=== PATIENT | female | born 1940 | race Caucasian/White ===

== ENCOUNTER → 2021-04-11 14:08 | Outpatient (BNVA) | payer MEDICARE, OTHER, SELFPAY | PROVIDERS: PCP Physician Assistant Medical; Visit Provider Orthopaedic Surgery | DX: M16.11 Unilateral primary osteoarthritis, right hip (principal) | CPT/HCPCS: 99212 ==

== ENCOUNTER → 2021-05-08 12:49 | Outpatient (BNVA) | payer MEDICARE, OTHER, SELFPAY | PROVIDERS: Visit Provider Orthopaedic Surgery | DX: Z01.812 Encounter for preprocedural laboratory examination (principal); Z01.810 Encounter for preprocedural cardiovascular examination; M17.11 Unilateral primary osteoarthritis, right knee ==

== ENCOUNTER → 2021-06-07 11:07 | Outpatient (BNVA) | payer MEDICARE, OTHER, SELFPAY | PROVIDERS: PCP Physician Assistant Medical; Visit Provider Physician Assistant | DX: M17.11 Unilateral primary osteoarthritis, right knee (principal) | CPT/HCPCS: 99212 ==

== ENCOUNTER 2021-06-12 10:01 | Day surgery (SDC) | payer MEDICARE, OTHER, SELFPAY ==
--- NOTE | 2021-05-29 10:44 | HO.ANESPROP2 ---
Documented by User: Julita Doll NP 06/09/21 09:03 HPI - Anesthesia Eval Consult details Narrative: 81yo F for Right Knee Replacement Total Methotrexate for Rheumatoid Arthritis - has instructions to hold Pt with herniated cervical discs s/p repair with mildly limited ROM. Also reports lumbar disc herniation. Discussed spinal with GA back up if spinal not possible. PCP cleared s/p L TKA 2000 [facility] Active Problems Active Problems: All Active Problems (Updated 05/26/21 @ 10:12 by Nimco Kumar) Primary osteoarthritis of right hip (Acute) Osteoarthritis of right knee (Acute) Past Medical History Medical History Anxiety Arthritis Atrial dilatation, left COVID-19 vaccine series completed Degenerative disc disease Depression Elevated cholesterol GERD (gastroesophageal reflux disease) HTN (hypertension) HX: breast cancer Hypothyroid Mitral regurgitation Normal cardiac stress test Osteopenia Family History Family history of problems with anesthesia: No Surgical History Surgical History History of carpal tunnel release of both wrists History of lumpectomy of right breast History of total left knee replacement Hx of cervical discectomy Hx of lithotripsy Hx of nasal septoplasty History of Problems with Anesthesia: No Social History Social History Household Members: None Housing: Apartment Are you a primary client care representative to a significant other at home: No Do you presently have visiting nurse or other home services: No Patient Tobacco Use Status: Former Tobacco user Quit Date: age 34 Tobacco use type: Cigarette Years Smoked: 19 Smoked in Last 30 Days: No Use of substances other than those prescribed or required for medical reasons: No Have you been hit, kicked, punched, or otherwise hurt by someone within the past year? 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 Narrative Narrative: No recent illness No CP/SOB with >4mets (walks at the mall) Meds Allergies Allergy/AdvReac Type Severity Reaction Status Date / Time amoxicillin [Augmentin] AdvReac Mild Stomach Verified 06/07/21 11:14 Upset clavulanic acid [Augmentin] AdvReac Mild Stomach Verified 06/07/21 11:14 Upset Home Medications Medication Instructions Recorded Confirmed Last Taken Type clonazepam 0.5 mg tablet 1 tab PO DAILY PRN 05/26/21 05/26/21 Unknown History escitalopram oxalate 20 mg tablet 1 tab PO DAILY 05/26/21 05/26/21 Unknown History folic acid 1 mg tablet 1 tab PO DAILY 05/26/21 05/26/21 Unknown History gabapentin 100 mg capsule 2 cap PO BEDTIME 05/26/21 05/29/21 Unknown History levothyroxine 75 mcg tablet 1 tab PO QAM 05/26/21 05/26/21 Unknown History meclizine 25 mg tablet 1 tab PO BID PRN 05/26/21 05/26/21 Unknown History methotrexate sodium 2.5 mg tablet 8 tab PO QWEEK 05/26/21 05/26/21 Unknown History omeprazole 40 mg capsule,delayed 1 cap PO DAILY 05/26/21 05/26/21 Unknown History release trazodone 100 mg tablet 1 tab PO BEDTIME 05/26/21 05/26/21 Unknown History cholecalciferol (vitamin D3) 50 100 mcg PO DAILY 05/29/21 05/29/21 Unknown History mcg (2,000 unit) capsule (Vitamin D3) lisinopril 20 mg tablet 1 tab PO DAILY 05/29/21 05/29/21 Unknown History magnesium 500 mg tablet 15 mg PO DAILY 05/29/21 05/29/21 Unknown History vit C-vit B-qrgyhm-[id number]-omega 1 cap PO DAILY 05/29/21 05/29/21 Unknown History 3 100 mg-15 unit-2 mg-100 mg capsule tramadol 50 mg tablet 50 mg PO Q6H PRN 06/07/21 Unknown History Exam Exam Date and Time: May 29, 2021 1044 Height,Weight and Vital Signs: Pulse Resp BP Pulse Ox 87 20 103/55 L 96 05/29/21 12:19 05/29/21 12:19 05/29/21 12:19 05/29/21 12:19 Pertinent Lab Results Pertinent Lab Results: Outside facility labs from 05/2021 reviewed BMP, TSH, PT/INR, CBC all WNL except: Hgb low at 10.5 A1C = 6.1 Lab Results 05/29/21 05/29/21 Range/Units 12:30 13:10 Nasal Screen MRSA (PCR) NEGATIVE (Negative) Nasal S. aureus Screen NEGATIVE (Negative) Nasal MRSA/S.aureus Interp SEE NOTE Blood Type B Negative Antibody Screen NEGATIVE Narrative Narrative: EKG NSR @ 80 Poor R wave progression ECHO 2017 LV cavity size and wall thickness are normal. LV systolic function is normal EF 65% LV diastolic couldn't be adequately assessed LA mildly dilated Moderate mitral regurg Moderate elevated pulmonary pressure Compared to 2008. degree of MR may have increased slightly and now LAE. Also, pulmonary pressures are higher Airway Mallampati Class: I TM Dist: >3cm Neck ROM: Limited (Herniated cervical disc s/p surgical discectomy x 2) Denture: Upper and Lower Heart: RRR Lungs: CTAB Assessment and Plan Assessment Anesthesia Assessment: Anesthesia Plan Discussed (Spinal (reports lumbar disc herniation, unsure of level) vs GA) and PAT Visit Final Anesthetic Review Family History of Problems with Anesthesia: No History of Problems with Anesthesia: No Documented by User: Zeenat Chilel MD 06/12/21 11:33 [facility] Past Medical History Medical History Anxiety Arthritis Atrial dilatation, left COVID-19 vaccine series completed Degenerative disc disease Depression Elevated cholesterol GERD (gastroesophageal reflux disease) HTN (hypertension) HX: breast cancer Hypothyroid Mitral regurgitation Normal cardiac stress test Osteopenia Surgical History Surgical History History of carpal tunnel release of both wrists History of lumpectomy of right breast History of total left knee replacement Hx of cervical discectomy Hx of lithotripsy Hx of nasal septoplasty Social History Social History Household Members: None Housing: Apartment Are you a primary client care representative to a significant other at home: No Do you presently have visiting nurse or other home services: No Patient Tobacco Use Status: Former Tobacco user Quit Date: age 34 Tobacco use type: Cigarette Years Smoked: 19 Smoked in Last 30 Days: No Use of substances other than those prescribed or required for medical reasons: No Have you been hit, kicked, punched, or otherwise hurt by someone within the past year? 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 Meds Allergies Allergy/AdvReac Type Severity Reaction Status Date / Time amoxicillin [Augmentin] AdvReac Mild Stomach Verified 06/07/21 11:14 Upset clavulanic acid [Augmentin] AdvReac Mild Stomach Verified 06/07/21 11:14 Upset Home Medications Medication Instructions Recorded Confirmed Last Taken Type clonazepam 0.5 mg tablet 1 tab PO DAILY PRN 05/26/21 05/26/21 Unknown History escitalopram oxalate 20 mg tablet 1 tab PO DAILY 05/26/21 05/26/21 Unknown History folic acid 1 mg tablet 1 tab PO DAILY 05/26/21 05/26/21 Unknown History gabapentin 100 mg capsule 2 cap PO BEDTIME 05/26/21 05/29/21 Unknown History levothyroxine 75 mcg tablet 1 tab PO QAM 05/26/21 05/26/21 Unknown History meclizine 25 mg tablet 1 tab PO BID PRN 05/26/21 05/26/21 Unknown History methotrexate sodium 2.5 mg tablet 8 tab PO QWEEK 05/26/21 05/26/21 Unknown History omeprazole 40 mg capsule,delayed 1 cap PO DAILY 05/26/21 05/26/21 Unknown History release trazodone 100 mg tablet 1 tab PO BEDTIME 05/26/21 05/26/21 Unknown History cholecalciferol (vitamin D3) 50 100 mcg PO DAILY 05/29/21 05/29/21 Unknown History mcg (2,000 unit) capsule (Vitamin D3) lisinopril 20 mg tablet 1 tab PO DAILY 05/29/21 05/29/21 Unknown History magnesium 500 mg tablet 15 mg PO DAILY 05/29/21 05/29/21 Unknown History vit C-vit C-wjgqrw-uyqdtpfm-omega 1 cap PO DAILY 05/29/21 05/29/21 Unknown History 3 100 mg-15 unit-2 mg-100 mg capsule tramadol 50 mg tablet 50 mg PO Q6H PRN 06/07/21 Unknown History Assessment and Plan Final Anesthetic Review NPO: Yes ASA Class: III Final Preanesthetic Review: No Changes in Pt Med Stat, Meds/Allgs Chart Reviewed, Consent Obtained/Reviewed and Anes Risks/Benef Reviewed Patient Risk: Intermediate Procedure Risk: Intermediate Assessment/Block/Sedation in SS: Assess/Block/Sedation-SS Anesthetic Plan Anesthetic Plan: GA and Regional Block Disposition: Standard PACU
[2021-05-29 12:03] VITALS: BMI 29.1
[2021-05-29 12:19] VITALS: BP 103/55; PULSE 87; RESP 20; O2SAT 96
[2021-05-29 14:39] LABS: MRSA Nasal PCR NEGATIVE (Negative); SA Nasal PCR NEGATIVE (Negative)
[2021-06-12] VITALS (15 sets, daily range): BP systolic 88–138; BP diastolic 52–79; PULSE 75–110; RESP 14–18; TEMP 36.2–37; O2SAT 91–99
--- NOTE | ~2021-06-12 | XR_ITS ---
EXAMINATION: XR CHEST CLINICAL INFORMATION: Hypoxia. COMPARISON: None TECHNIQUE: Frontal view of the chest was obtained. FINDINGS: The lungs are well-expanded and clear of acute process. Heart size and pulmonary vascularity is normal. No gross bony abnormality seen. XR/XR chest 1V IMPRESSION: Unremarkable chest exam.
--- NOTE | ~2021-06-12 | XR_ITS ---
EXAMINATION: XR KNEE, RIGHT CLINICAL INFORMATION: Postoperative evaluation. COMPARISON: Right knee radiographs dated 10/28/2019. TECHNIQUE: Four views of the right knee. FINDINGS: The patient is status post right knee arthroplasty showing good anatomic alignment with no evidence for hardware malfunction. There is no acute fracture. The subcutaneous and intra-articular air is seen. There is mild prepatellar soft tissue swelling. Multiple skin mak are noted anteriorly. XR/XR knee RT 2V IMPRESSION: Postsurgical changes without hardware abnormality.
--- NOTE | ~2021-06-12 | CT_ITS ---
EXAMINATION: CT ANGIOGRAM OF THE CHEST WITH AND WITHOUT CONTRAST (CT PULMONARY ANGIOGRAM FOR PE) CLINICAL INFORMATION: Reason for Exam hypoxia COMPARISON: Chest x-ray June 13, 2021 TECHNIQUE: Prior to contrast administration, noncontrast localization images were obtained. Subsequently, multidetector volumetric imaging was performed from the thoracic inlet to below the diaphragms following the administration of 65 mL Omnipaque 350 intravenous contrast. No contrast reaction reported Sagittal, coronal, and MIP oblique sagittal reformatted images were obtained on the CT workstation, uploaded to PACS, and reviewed. This CT examination was performed using dose optimization techniques as appropriate, variously including the following: *Automated exposure control *Adjustment of mA and/or kV according to patient size (this includes techniques or standardized protocols for targeted exams where dose is matched to indication/reason for exam; i.e. extremities or head) *Use of iterative reconstruction technique Total exam dose-length product 116 mGy-cm FINDINGS: QUALITY OF STUDY/CONTRAST BOLUS: Satisfactory. PULMONARY ARTERIES: No central or segmental pulmonary emboli. THORACIC AORTA: No aneurysm or dissection. LUNG: No focal consolidation, nodules or masses. Thin-walled lung cyst in the right lower lobe measuring 1.8 cm. PLEURA: No pleural effusion or pneumothorax. MEDIASTINUM: Normal heart size. No pericardial effusion. No hilar or mediastinal lymphadenopathy. No evidence of septal bowing or right heart strain. CHEST WALL/AXILLA: No axillary or internal mammary lymphadenopathy. OSSEOUS STRUCTURES: No acute or suspicious osseous abnormality. UPPER ABDOMEN: Unremarkable. No reflux of contrast into the hepatic veins to suggest elevated right heart pressures. CT/CT angio chest PE protocol IMPRESSION: 1. No evidence of pulmonary embolism. 2. No acute airspace disease. No acute change of the chest. VTE: negative
--- NOTE | 2021-06-12 07:42 | MHC.SHP ---
Pre-Procedural Eval Section A Date of Service: 06/12/21 The patient is an INPATIENT: No Changes since office visit: No Cold of Flu in the past 2 weeks, No New Medical Problems, No Changes in Medication and No Patient answered all questions The History & Physical has been completed within 30 days and I have reviewed it.: Yes Section B Chief Complaint: osteoarthritis Allergies: Allergies Allergy/AdvReac Type Severity Reaction Status Date / Time amoxicillin [Augmentin] AdvReac Mild Stomach Verified 06/07/21 11:14 Upset clavulanic acid [Augmentin] AdvReac Mild Stomach Verified 06/07/21 11:14 Upset Plan I have reviewed the history and physical and performed a pertinent physical examination on my patient. No changes have occurred unless specified.
[2021-06-12 10:46] LABS: COVID-19 Test Negative (Negative)
[2021-06-12] MEDS: Lactated Ringers 1,000 ML 80 ML IVCONT (11:02)
--- NOTE | 2021-06-12 11:25 | PC.NURSE ---
Patient o2 Stat 82-88% on RA post anesthesia nerve block, patient awake and talking, asymptomatic otherwise. Probe changed to different finger & sticker probe placed without resolution. Patient placed on 2L via NC and now stating 96%. Anesthesia Dr Eric notified.
--- NOTE | 2021-06-12 13:30 | P.OP_ITS ---
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 Has osteoarthritis. Has failed non operative management. Therefore after explaining the risks benefits and alternatives and answering all the questions it was mutually agreed upon care following procedure OPERATIVE DETAILS With of regional and spinal anesthetic the patient was placed supine on the operating table. Pneumatic tourniquet cuff was placed around the upper thigh and inflated to 300 mm of mercury at the beginning of the case. The leg was then prepped and draped in standard fashion with the leg free. Surgical time-out was then performed. The patient was identified. Procedure confirmed. Site confirmed. Medical and allergy history reviewed. Preoperative antibiotics were given. Standard DVT prophylaxis in place. Transexamic acid was given as well. All other items were discussed and agreed upon. Standard small midline incision was made. Was taken down through the subc utaneous tissues. Hemostasis achieved along the way using electrocautery. This brought us to the extensor mechanism where a medial parapatellar arthrotomy in a subvastus technique was performed. The patella was retracted into the lateral gutter. The soft tissues were elevated from the anterior aspect of the femur. At the level of the tibia the soft tissue elevated medially excising a portion of the meniscus as well as protecting the medial-sided soft tissues. Similarly on the lateral side a portion of the fat pad, portion of the meniscus were excised. The lateral-sided soft tissues were elevated protecting them as well. The ACL was resected. We turned our attention then to the femur. Standard Intermedullary hole was established. The cutting guide was set for 6 degrees of valgus with a standard cut. It was held in place with pins and the surface resected flat. The sizing guide was then used. The femur was sized to a E GSF The 3 degree external rotation pins were set. The all in 1 cutting guide for this size was placed the pins and centered over the distal cut. Following this the anterior and anterior chamfer cuts, the posterior and posterior chamfer cuts, the patellar recess cuts, as well as the lug holes were made. The guide was removed. The bony fragments removed and we turned our attention to the tibia. The remainder of the medial and lateral menisci were excised. The extramedullary guide was then used in standard fashion referencing the tibial tubercle, the subcutaneous border of the tibia, and the middle of the ankle. The slope was then set. The cut was referenced from the more worn size for a minimal cut. The surface was then resected. The bony segment removed. The tibia was then trialed to a size 5 x 10 mm. It was aligned as the extramed ullary guide had been. A 10 mm trial insert was put into place. The femoral trial was also applied with good fit. The alignment of the leg was excellent. The knee was then placed through a range of motion which demonstrated full extension full flexion stable medially and laterally at 0, 30, 60, and 90 degrees of flexion. Patella tracked centrally. Turning our attention to the patella. The soft tissues were elevated circumferentially. The surface was resected flat. It sized to 32 mm. the lug hole was drilled in standard fashion. The trial component was put into place with excellent fit. It tracked nicely through flexion and extension. Therefore the trial sizes were appropriate and therefore the permanent components were selected and brought up onto the table. The trial components were then all removed after the peg holes for the tibia were made. The tourniquet was then let down with total tourniquet time of 38 mm. The area of the lateral geniculate artery was identified and cauterized. Any excessive bleeding points were also cauterized. The knee was then thoroughly irrigated. The permanent components were brought up onto the table. The tibia followed by the femur followed by the patella were all Press-Fit into place. The knee was placed through range of motion. It had full flexion and extension. It was stable medial and laterally in all positions. Patella tracked centrally. And therefore we proceeded to closure. Wound was thoroughly irrigated. The extensor mechanism was closed with #2 Quill suture. The skin was approximated with 2-0 Polysorb suture. The skin was closed with mak. Sterile dressing was then applied. The patient was then transferred supine to the room bed and taken to the recovery room in good condition. Intraoperatively a 2nd unit a transxemic acid was given at the time of closure. There was approximately 50 cc blood loss. No intraop transfusions or complications. .
[2021-06-12] MEDS: oxyCODONE HCl Immed Release 5 MG TABLET PO (14:40)
[2021-06-12] MEDS: fentaNYL citrate/PF 100 MCG/2 ML VIAL 25 MCG IVPUSH ×2 (14:40→14:45)
[2021-06-12] MEDS: Lactated Ringers 1,000 ML 100 ML IVCONT (15:54)
[2021-06-12] MEDS: Lactated Ringers 1,000 ML 999 ML IV (17:23)
[2021-06-12] MEDS: Acetaminophen 325 MG TABLET 650 MG PO ×2 (17:25→21:49)
[2021-06-12] MEDS: Ketorolac Tromethamine 15 MG/ML VIAL IVPUSH (21:46)
[2021-06-12] MEDS: oxyCODONE HCl Immed Release 5 MG TABLET 10 MG PO (21:48)
[2021-06-13] VITALS (8 sets, daily range): BP systolic 102–129; BP diastolic 48–62; PULSE 75–94; RESP 16–18; TEMP 36.2–37; O2SAT 93–100
--- NOTE | 2021-06-13 | ECG_ITS ---
Test Reason : RAPID RESPONSE Blood Pressure : / mmHG Vent. Rate : 101 BPM Atrial Rate : 101 BPM P-R Int : 170 ms QRS Dur : 090 ms QT Int : 344 ms P-R-T Axes : 051 016 152 degrees QTc Int : 446 ms Sinus tachycardia Low voltage QRS Nonspecific ST and T wave abnormality Abnormal ECG No previous ECGs available Referred By: Esequiel Solares Electronically Signed By:ARIANA CHOW
[2021-06-13] MEDS: Ketorolac Tromethamine 15 MG/ML VIAL IVPUSH ×4 (03:06→22:14)
[2021-06-13] MEDS: Acetaminophen 325 MG TABLET 650 MG PO ×4 (03:08→22:15)
[2021-06-13] MEDS: oxyCODONE HCl Immed Release 5 MG TABLET 10 MG PO ×3 (03:08→15:40)
[2021-06-13] MEDS: Lactated Ringers 1,000 ML 100 ML IVCONT ×2 (03:10→17:10)
[2021-06-13] MEDS: 0.9 % Sodium Chloride Flush 3 ML SYRINGE IVFLUSH (09:39)
--- NOTE | 2021-06-13 09:39 | PM.IMCN ---
History of Present Illness Data of Consult Service Date: 06/13/21 Requesting physician: Thu Vides Primary Care Provider: Unknown Physician HPI Reason for consult: Medical issues This is a 81 yo F with a PMH as outlined below who presents is admitted under the orthopedic after elective R TKA. Medical services are consulted for management of her medical issues. Patient is seen and examined on Med/Surg. She reports knee pain but otherwise denies cp, sob, cough, abd. pain, n/v/d. Review of Systems Review of Systems: General - no fevers or chills Cardiovascular - no chest pain Respiratory - no shortness of breath or cough Abdominal- no abdominal pain, nausea, vomiting, diarrhea PMFSH Medical History Anxiety Arthritis Atrial dilatation, left COVID-19 vaccine series completed Degenerative disc disease Depression Elevated cholesterol GERD (gastroesophageal reflux disease) HTN (hypertension) HX: breast cancer Hypothyroid Mitral regurgitation Normal cardiac stress test Osteopenia Surgical History History of carpal tunnel release of both wrists History of lumpectomy of right breast History of total left knee replacement Hx of cervical discectomy Hx of lithotripsy Hx of nasal septoplasty Social History Household Members: None Housing: House Are you a primary md do resident urgent care to a significant other at home: No Do you presently have visiting nurse or other home services: No Patient Tobacco Use Status: Former Tobacco user Quit Date: age 34 Tobacco use type: Cigarette Years Smoked: 19 Smoked in Last 30 Days: No Use of substances other than those prescribed or required for medical reasons: No Currently Displaying Signs/Symptoms of Drug Intoxication Withdrawal: No Have you been hit, kicked, punched, or otherwise hurt by someone within the past year? If so, by whom?: No Do you feel safe in your current relationship?: No Current Relationship Is there a partner from a previous relationship who is making you feel unsafe now?: No Are you made to feel afraid or neglected: No Are you DNR?: Yes Advance Directives: Yes Advance Directives Information Provided: Yes (states is son Harrison-will bring copy DOS of HCP & DNR) Advance Directives on File: No Advance Directives Date on File: 06/12/21 Do you have thoughts of harming others: None Do you have a plan to hurt others: No Plan Recently lost weight without trying: No Eating poorly because of decreased appetite: No Nutrition Risks: No Nutritional Risk Patient : No : No Poor oral hygiene: No Current occupational status: 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 Meds Allergies Allergy/AdvReac Type Severity Reaction Status Date / Time amoxicillin [Augmentin] AdvReac Mild Stomach Verified 06/07/21 11:14 Upset clavulanic acid [Augmentin] AdvReac Mild Stomach Verified 06/07/21 11:14 Upset Active Medications: Current Medications Generic Name Dose Route Start Last Admin Trade Name Freq PRN Reason Stop Dose Admin Acetaminophen 650 mg 06/12/21 15:44 06/13/21 03:08 Acetaminophen 325 Mg Tablet PO 650 mg Q6H BERTRAND Administration Aspirin 325 mg 06/13/21 22:00 Aspirin 325 Mg Tablet PO BID BERTRAND Lactated Ringer's 1,000 mls @ 80 mls/hr 06/12/21 10:15 06/13/21 03:10 Lr IVCONT 100 mls/hr .[id number] BERTRAND Administration Ketorolac Tromethamine 15 mg 06/12/21 15:44 06/13/21 03:06 Ketorolac Tromethamine 15 Mg/Ml Vial IVPUSH 15 mg Q6H BERTRAND Administration Morphine Sulfate 2 mg 06/12/21 15:44 Morphine Sulfate 2 Mg/Ml Cartridge IVPUSH Q2H PRN Pain, Severe (Pain Scale 7-10) Protocol Naloxone HCl 0.2 mg 06/12/21 15:44 Naloxone Hcl 0.4 Mg/Ml Vial IVPUSH Q2M PRN Excessive sedation or RR < 8 Ondansetron HCl 4 mg 06/12/21 15:44 Ondansetron Hcl 4 Mg/2 Ml Vial IVPUSH Q8H PRN Nausea and Vomiting Oxycodone HCl 10 mg 06/12/21 15:44 06/13/21 03:08 Oxycodone Hcl Immed Release 5 Mg Tablet PO 10 mg Q6H BERTRAND Administration Sodium Chloride 3 ml 06/12/21 16:00 06/12/21 23:37 0.9 % Sodium Chloride Flush 3 Ml Syringe IVFLUSH Not Given QSHIFT [facility] Home Medications Medication Instructions Recorded Confirmed Last Taken Type clonazepam 0.5 mg tablet 1 tab PO DAILY PRN 05/26/21 05/26/21 Unknown History escitalopram oxalate 20 mg tablet 1 tab PO DAILY 05/26/21 05/26/21 Unknown History folic acid 1 mg tablet 1 tab PO DAILY 05/26/21 05/26/21 Unknown History gabapentin 100 mg capsule 2 cap PO BEDTIME 05/26/21 05/29/21 Unknown History levothyroxine 75 mcg tablet 1 tab PO QAM 05/26/21 05/26/21 Unknown History meclizine 25 mg tablet 1 tab PO BID PRN 05/26/21 05/26/21 Unknown History methotrexate sodium 2.5 mg tablet 8 tab PO QWEEK 05/26/21 05/26/21 Unknown History omeprazole 40 mg capsule,delayed 1 cap PO DAILY 05/26/21 05/26/21 Unknown History release trazodone 100 mg tablet 1 tab PO BEDTIME 05/26/21 05/26/21 Unknown History cholecalciferol (vitamin D3) 50 100 mcg PO DAILY 05/29/21 05/29/21 Unknown History mcg (2,000 unit) capsule (Vitamin D3) lisinopril 20 mg tablet 1 tab PO DAILY 05/29/21 05/29/21 Unknown History magnesium 500 mg tablet 15 mg PO DAILY 05/29/21 05/29/21 Unknown History vit C-vit G-[id number]-moyteteq-omega 1 cap PO DAILY 05/29/21 05/29/21 Unknown History 3 100 mg-15 unit-2 mg-100 mg capsule tramadol 50 mg tablet 50 mg PO Q6H PRN 06/07/21 Unknown History Physical Exam Vital Signs and Narrative: Vital Signs: Last Vital Signs Temp 97.1 F 06/13/21 07:26 Pulse 75 06/13/21 07:26 Resp 16 06/13/21 07:26 BP 102/55 L 06/13/21 07:26 Pulse Ox 96 06/13/21 07:26 Body Mass Index 29.1 Const: Other: General - no acute distress, appears comfortable Cardiovascular - regular rate and rhythm, S1-S2 Lungs - normal respiratory effort, clear to auscultation bilaterally, no wheezing Abdomen - soft, nontender, no rebound or guarding Extremities - no edema bilaterally Neuro - awake and alert, no focal deficits Results Labs Labs: Laboratory Results - last 24 hr 06/12/21 10:16 COVID-19 ([facility]) Negative COVID-19 Clin Com See Note Assessment and Plan (1) Osteoarthritis of right knee: Status: Acute This is a 81 yo F admitted under the orthopedic services after elective R TKA. Medical services consulted for management of her chronic medical issues. 1. HTN bp soft, hold antihypertensives. If SBP remains above 120 during hospitalization, can resume her antihypertensives upon d/c. 2. Hypothyroidism synthroid 3. GERD PPI 4. Mood continue baseline meds 5. R TKA mgmt per ortho, including post op pain and dvt pptx Patient is medically stable at this time with no active medical issues. Please reconsult or [facility]connect if any issues arise. Signing off at this time.
--- NOTE | 2021-06-13 09:46 | PM.PNORT ---
Subjective Subjective Date of Service: 06/13/21 Interval history: POD 1 s/p RT TKA No overnight events She is sitting up in the chair, knee bent, tolerating pain well. No concerns. Denies sob or cp Physical Exam Vital Signs: Vital Signs: Last Vital Signs Temp 97.1 F 06/13/21 07:26 Pulse 75 06/13/21 07:26 Resp 16 06/13/21 07:26 BP 102/55 L 06/13/21 07:26 Pulse Ox 96 06/13/21 07:26 Body Mass Index 29.1 Const: General: cooperative, healthy appearing and no acute distress Resp: Effort & Inspection: normal respiratory effort and able to speak in complete sentences Cardio: Rate: regular rate Peripheral pulses: Peripheral pulses 2+ throughout GI: Palpation (GI): Soft to palpation Skin: General skin exam: no rashes or lesions noted Extrem: Other: incision clean dry and intact. Jerrica intact. No erythema or joint effusion. Calf supple nontender. Neurovascularly intact. Procedures Date of Service Date of Service: 06/13/21 Progress Note: A&P Assessment and plan (1) Status post total right knee replacement: Status: Acute Assessment and Plan: Continue pain mgmnt Begin Aspirin for dvt ppx begin PT for RT TKA Dispo planning-Pending PT eval, pain mgmnt Fall Risk Details Current Medications: Current Medications Generic Name Dose Route Start Last Admin Trade Name Freq PRN Reason Stop Dose Admin Acetaminophen 650 mg 06/12/21 15:44 06/13/21 09:40 Acetaminophen 325 Mg Tablet PO 650 mg Q6H BERTRAND Administration Aspirin 325 mg 06/13/21 22:00 Aspirin 325 Mg Tablet PO BID BERTRAND Clonazepam 0.5 mg 06/13/21 09:40 Clonazepam 0.5 Mg Tablet PO DAILY PRN Anxiety Escitalopram Oxalate 20 mg 06/13/21 09:40 Escitalopram Oxalate 20 Mg Tablet PO DAILY BERTRAND Folic Acid 1 mg 06/13/21 09:40 Folic Acid 1 Mg Tablet PO DAILY BERTRAND Gabapentin 200 mg 06/13/21 21:00 Gabapentin 100 Mg Capsule PO BEDTIME BERTRAND Lactated Ringer's 1,000 mls @ 80 mls/hr 06/12/21 10:15 06/13/21 03:10 Lr IVCONT 100 mls/hr .[id number] BERTRAND Administration Ketorolac Tromethamine 15 mg 06/12/21 15:44 06/13/21 09:39 Ketorolac Tromethamine 15 Mg/Ml Vial IVPUSH 15 mg Q6H BERTRAND Administration Levothyroxine Sodium 75 mcg 06/14/21 06:30 Levothyroxine Sodium 75 Mcg Tablet PO QAM [facility] Morphine Sulfate 2 mg 06/12/21 15:44 Morphine Sulfate 2 Mg/Ml Cartridge IVPUSH Q2H PRN Pain, Severe (Pain Scale 7-10) Protocol Naloxone HCl 0.2 mg 06/12/21 15:44 Naloxone Hcl 0.4 Mg/Ml Vial IVPUSH Q2M PRN Excessive sedation or RR < 8 Omeprazole 40 mg 06/13/21 09:40 Omeprazole 40 Mg Capsule.Dr PO DAILY [facility] Ondansetron HCl 4 mg 06/12/21 15:44 Ondansetron Hcl 4 Mg/2 Ml Vial IVPUSH Q8H PRN Nausea and Vomiting Oxycodone HCl 10 mg 06/12/21 15:44 06/13/21 09:40 Oxycodone Hcl Immed Release 5 Mg Tablet PO 10 mg Q6H BERTRAND Administration Sodium Chloride 3 ml 06/12/21 16:00 06/13/21 09:39 0.9 % Sodium Chloride Flush 3 Ml Syringe IVFLUSH 3 ml QSHIFT BERTRAND Administration Trazodone HCl 100 mg 06/13/21 21:00 Trazodone Hcl 100 Mg Tablet PO BEDTIME [facility] Vitamin D 100 mcg 06/13/21 09:40 Cholecalciferol (Vitamin D3) 25 Mcg Tablet PO DAILY [facility] Time Spent With Patient Time: Total time spent is greater than 50% in coordination of care (as documented) at patient's floor/unit and/or counseling patient: Time with patient: 15 - 24 minutes Quality Stroke Does the patient have a stroke diagnosis?: No VTE Prior VTE?: No VTE Risk Level:: Surgical - high VTE Device Contraindication: N/A - Device Ordered VTE Drug Contraindication: N/A - Med Ordered
[2021-06-13] MEDS: Escitalopram Oxalate 20 MG TABLET PO (10:12)
[2021-06-13] MEDS: Cholecalciferol (Vitamin D3) 25 MCG TABLET 100 MCG PO (10:12)
[2021-06-13] MEDS: Folic Acid 1 MG TABLET PO (10:12)
--- NOTE | 2021-06-13 10:14 | HO.POSTANES ---
Post Anesthesia Evaluation Post Anesthesia Evaluation Vital Signs: Vital Signs Temp Pulse Resp BP Pulse Ox 06/13/21 09:52 75 102/55 L 96 06/13/21 07:26 97.1 F 75 16 102/55 L 96 06/13/21 03:05 97.8 F 75 16 125/62 94 06/12/21 23:26 97.2 F 81 16 106/56 L 91 L Anesthesia: Nerve Block and General Endotracheal-GETA Mental Status: Awake Pain Control: Satisfactory Nausea/Vomiting: None Hydration: Adequate Anesthesia-Related Issues: No Anes. Related Issues
[2021-06-13] MEDS: Morphine Sulfate 2 MG/ML CARTRIDGE IVPUSH (12:42)
--- NOTE | 2021-06-13 13:49 | MHC.CM.PN ---
IMM 06/13/21, EMR REVIEWED, PT ADMITTED S/P TOTAL LEFT KNEE ARTHROPLASTY, PT REPORTS SHE IS INDEPENDENT W/CARE AT BASELINE, HAS CANE AND WALKER W/NO WHEELS AT HOME & NO HOME SERVICES, PT REQUESTING [facility] FOR STR REPORTING SHE CANNOT MANAGE AT HOME W/ALL OF HER OTHER AIN ISSUES INCLUDING BACK AND NECK PAIN, PT VERIFIES PCP IS CHRIS DEUTSCH. PT VERIFIES HCP SONS LISTED IN CHART AND COPY HAS BEEN REQUESTED, AND AWARE WE WILL NEED FOR STR. D/C PLAN: STR W/ACTION FOR BLS TRANSPORT.
[2021-06-13] MEDS: Furosemide 100 MG/10 ML VIAL 60 MG IVPUSH (19:11)
[2021-06-13 19:57] LABS: Hematocrit 23.1 % (37-47); Mean Corpuscular HGB Conc 30.3 g/dl (31.0-35.0); Mean Corpuscular Hemoglobin 23.5 pg (27.0-33.0); Mean Corpuscular Volume 77.5 fL (80-98); Mean Platelet Volume 10.4 fL (9.4-12.3); Platelet Count 174 X10*3/uL (160-400); Red Blood Count 2.98 X10*6/uL (4.20-5.50); Red Cell Distribution Width 16.3 % (11.0-16.0); White Blood Count 5.2 X10*3/uL (4.8-10.8)
[2021-06-13 20:25] LABS: Anion Gap 12 (12-20); Blood Urea Nitrogen 20 mg/dL (9-16); Calcium 8.1 mg/dL (8.4-10.2); Carbon Dioxide 25 mmol/L (22-29); Chloride 106 mmol/L (96-108); Creatinine Clr Calc Pharmacy 35.8; Estimated Glomerular Filt Rate 46; Glucose Random 125 mg/dL (60-115); Potassium 4.2 mmol/L (3.3-5.1); Sodium 139 mmol/L (135-145)
[2021-06-13 20:31] LABS: B Type Natriuretic Peptide 198 pg/mL (<100); Troponin-I High Sensitivity < 3.5 ng/L (<3.5-17.0)
--- NOTE | 2021-06-13 21:28 | P.DS_ITS ---
DS: Providers Provider Date of Service: 06/15/21 Primary care physician: Unknown Physician Consults: 06/12/21 15:44 Consult to Hospitalist Routine Consulting Provider: Hospitalist Reason For Exam: medical issues DS: Diagnosis Discharge Diagnosis (1) Status post total right knee replacement: Status: Acute DS: Medications Discharge Medications Home Medications: Home Medications Medication Instructions Recorded Confirmed clonazepam 0.5 mg tablet 1 tab PO DAILY PRN 05/26/21 05/26/21 escitalopram oxalate 20 mg tablet 1 tab PO DAILY 05/26/21 05/26/21 folic acid 1 mg tablet 1 tab PO DAILY 05/26/21 05/26/21 gabapentin 100 mg capsule 2 cap PO BEDTIME 05/26/21 05/29/21 levothyroxine 75 mcg tablet 1 tab PO QAM 05/26/21 05/26/21 meclizine 25 mg tablet 1 tab PO BID PRN 05/26/21 05/26/21 methotrexate sodium 2.5 mg tablet 8 tab PO QWEEK 05/26/21 05/26/21 omeprazole 40 mg capsule,delayed 1 cap PO DAILY 05/26/21 05/26/21 release trazodone 100 mg tablet 1 tab PO BEDTIME 05/26/21 05/26/21 cholecalciferol (vitamin D3) 50 100 mcg PO DAILY 05/29/21 05/29/21 mcg (2,000 unit) capsule (Vitamin D3) lisinopril 20 mg tablet 1 tab PO DAILY 05/29/21 05/29/21 magnesium 500 mg tablet 15 mg PO DAILY 05/29/21 05/29/21 vit C-vit F-tzxcbp-dgdipxto-omega 1 cap PO DAILY 05/29/21 05/29/21 3 100 mg-15 unit-2 mg-100 mg capsule Previous Rx's Medication Instructions Recorded acetaminophen 325 mg tablet 650 mg PO Q6H 30 Days #240 tab 06/13/21 aspirin 325 mg tablet 325 mg PO BID 14 Days #28 tab 06/13/21 oxycodone 10 mg tablet 10 mg PO Q6H 7 Days #28 tab 06/13/21 DS: Summary Hospital Course Hospital Course: This is a 81-year-old female presented the office with right knee pain. She was found have osteoarthritis of the right knee and continued to have pain and difficulty with daily activities. Therefore she consented to move forward with right total knee arthroplasty. The patient underwent a successful RIGHT TOTAL KNEE arthroplasty, was transferred to PACU and then to the floor to recover. During their stay, their vitals were stable, afebrile at 99.1. Labs were unremarkable, H/H 8.8/28.8 . Postop day 0 she had a syncopal episode where she became cyanotic. Stat H&H was performed and her values were 6.3/21.1. She was transfused with 2 units of packed red blood cells. Patient also had a chest x-ray, CT angiogram which were negative. Echo cardiogram was significant for pulmonary hypertension. Postop day 1 she was started on aspirin for DVT ppx, they also received services twice a day. Prior to discharge, their dressing was change, incision clean dry and intact, new Aquacel dressing applied and the plan was [facility] be [facility]. Time Spent with Patient Time attestation: Total time spent providing and/or coordinating discharge services: Discharge coordination time: Less than 30 minutes Quality: Stroke Does the patient have a stroke diagnosis?: No Physical Exam Vital Signs: Vital Signs: Last Vital Signs Temp 98.6 F 06/13/21 20:00 Pulse 94 06/13/21 20:00 Resp 18 06/13/21 20:00 BP 129/59 L 06/13/21 15:27 Pulse Ox 100 06/13/21 20:00 Oxygen Flow Rate 1 06/13/21 14:27 Body Mass Index 29.1 DS: Data Data Completed and Pending Pending studies at discharge: Pending at discharge 06/12/21 13:09 Surgical [PTH] Routine Labs on day of discharge: Laboratory Results - last 24 hr 06/13/21 06/13/21 06/13/21 19:37 19:37 19:38 WBC 5.2 RBC 2.98 L Hgb 7.0 L* Hct 23.1 L MCV 77.5 L MCH 23.5 L MCHC 30.3 L RDW 16.3 H Plt Count 174 MPV 10.4 Absolute Nucleated RBC 0.000 Nucleated RBC % (auto) 0.0 Smear Path Review Cancelled Sodium 139 Potassium 4.2 Chloride 106 Carbon Dioxide 25 Anion Gap 12 BUN 20 H Creatinine 1.14 Estim Creat Clear Calc 35.8 Estimated GFR 46 Random Glucose 125 H Calcium 8.1 L Troponin I High Sens < 3.5 B-Natriuretic Peptide 198 H Discharge Plan Discharge Patient Disposition: er SNF Referrals: [facility]ino Erickson [Outside] - 1 Day (short term rehab) Tonia Bishop PA-C [[employer]] - 2 Weeks (06/28/21 1:00 [facility] Tonia Bishop PA-C) Discharge Medications: New aspirin 325 mg Tablet 325 mg PO BID 14 Days Qty: 28 RF: 0 acetaminophen 325 mg Tablet 650 mg PO Q6H 30 Days Qty: 240 RF: 0 oxycodone 10 mg tablet 10 mg PO Q6H PRN (Reason: pain (scale score 4-6)) 7 Days Qty: 28 RF: 0 Continued clonazepam 0.5 mg tablet 1 tab PO DAILY PRN (Reason: Anxiety) RF: 0 omeprazole 40 mg capsule,delayed release(DR/EC) 1 cap PO DAILY RF: 0 levothyroxine 75 mcg tablet 1 tab PO QAM RF: 0 trazodone 100 mg tablet 1 tab PO BEDTIME RF: 0 meclizine 25 mg tablet 1 tab PO BID PRN (Reason: Vertigo) RF: 0 folic acid 1 mg tablet 1 tab PO DAILY RF: 0 gabapentin 100 mg capsule 2 cap PO BEDTIME RF: 0 escitalopram oxalate 20 mg tablet 1 tab PO DAILY RF: 0 lisinopril 20 mg tablet 1 tab PO DAILY RF: 0 vit C-vit [id number]-vzb-om-3 [id number] dp-pjsk-sv-mg Capsule 1 cap PO DAILY RF: 0 magnesium 500 mg Tablet 15 mg PO DAILY RF: 0 cholecalciferol (vitamin D3) [Vitamin D3] 50 mcg (2,000 unit) Capsule 100 mcg PO DAILY RF: 0 Held methotrexate sodium 2.5 mg tablet 8 tab PO QWEEK RF: 0 Hold Instructions: hold x 6 weeks Discontinued tramadol 50 mg tablet 50 mg PO Q6H PRNRF: 0 Discharge Orders: Discharge Order (Routine); Ordered 06/15/21 Ordered By: Tonia Bishop Activity Restrictions/Additional Instructions: * Physical Therapy for Total knee arthroplasty: gait training, ROM 0-12, quad strength * Limit stair climbing * No showering, no tub bath-keep dressing clean, dry and intact * No driving x6 weeks * Continue Aspirin twice a day x 2 weeks * Follow up with [facility] in 2 weeks
[2021-06-13 21:39] LABS: Ferritin 15 ng/mL (10-250)
[2021-06-13 21:58] LABS: Folate 10.2 ng/mL (> or = 4.0); Vitamin B12 539 pg/mL (200-900)
[2021-06-13] MEDS: Aspirin 325 MG TABLET PO (22:14)
[2021-06-13] MEDS: Gabapentin 100 MG CAPSULE 200 MG PO (22:16)
[2021-06-13] MEDS: traZODone HCL 100 MG TABLET PO (22:17)
[2021-06-14] VITALS (17 sets, daily range): BP systolic 86–146; BP diastolic 49–73; PULSE 70–90; RESP 16–18; TEMP 36.1–37; O2SAT 75–98
[2021-06-14] MEDS: oxyCODONE HCl Immed Release 5 MG TABLET 10 MG PO ×5 (00:51→20:49)
[2021-06-14] MEDS: Acetaminophen 325 MG TABLET 650 MG PO ×4 (04:19→20:50)
[2021-06-14] MEDS: Ketorolac Tromethamine 15 MG/ML VIAL IVPUSH ×4 (04:21→22:51)
[2021-06-14 06:23] LABS: MANUAL DIFF FLAG NO
[2021-06-14] MEDS: Levothyroxine Sodium 75 MCG TABLET PO (06:29)
[2021-06-14] MEDS: Omeprazole 40 MG CAPSULE.DR PO (06:29)
[2021-06-14 06:42] LABS: Basophils Percent Auto 0.4 % (0-2); Eosinophils Absolute Auto 0.1 X10*3/uL (0.0-0.4); Eosinophils Percent Auto 2.2 % (0-4); Hematocrit 21.1 % (37-47); Imm Gran Abs Auto 0.01 X10*3/uL (0.00-0.03); Imm Gran Pct Auto 0.2 % (0.0-0.4); Lymphocytes Absolute Auto 1.3 X10*3/uL (1.2-4.9); Lymphocytes Percent Auto 29.3 % (20-40); Mean Corpuscular HGB Conc 29.9 g/dl (31.0-35.0); Mean Corpuscular Hemoglobin 23.4 pg (27.0-33.0); Mean Corpuscular Volume 78.4 fL (80-98); Mean Platelet Volume 10.6 fL (9.4-12.3); Monocytes Absolute Auto 0.6 X10*3/uL (0.1-1.2); Monocytes Percent Auto 13.1 % (2-11); Neutrophils Absolute Auto 2.5 X10*3/uL (2.0-8.3); Neutrophils Percent Auto 54.8 % (45-73); Platelet Count 158 X10*3/uL (160-400); Red Blood Count 2.69 X10*6/uL (4.20-5.50); Red Cell Distribution Width 16.3 % (11.0-16.0); White Blood Count 4.6 X10*3/uL (4.8-10.8)
[2021-06-14 07:00] LABS: Hemoglobin 6.3 g/dl (12.0-16.0)
[2021-06-14 07:14] LABS: Anion Gap 8 (12-20); Blood Urea Nitrogen 22 mg/dL (9-16); Carbon Dioxide 30 mmol/L (22-29); Chloride 107 mmol/L (96-108); Creatinine Clr Calc Pharmacy 37.1; Estimated Glomerular Filt Rate 48; Glucose Random 101 mg/dL (60-115); Potassium 4.3 mmol/L (3.3-5.1); Sodium 141 mmol/L (135-145)
[2021-06-14 08:00] LABS: COVID-19 Test Negative (Negative)
[2021-06-14] MEDS: Cholecalciferol (Vitamin D3) 25 MCG TABLET 100 MCG PO (08:04)
[2021-06-14] MEDS: Aspirin 325 MG TABLET PO ×2 (08:04→20:48)
[2021-06-14] MEDS: Folic Acid 1 MG TABLET PO (08:04)
[2021-06-14] MEDS: Escitalopram Oxalate 20 MG TABLET PO (08:04)
--- NOTE | 2021-06-14 09:44 | P.PNOP_ITS ---
Subjective Subjective Date of Service: 06/14/21 Interval history: POD2 RTKA with Dr. Vides. Patient is resting comfortably in bed. Overnight the patient has a syncopal episode and became cyanotic. A chest x-ray was obtained and was negative for any acute pathology. The patient is feeling beeter this morning. Pain is well managed. Physical Exam Vital Signs: Vital Signs: Last Vital Signs Temp 97.2 F 06/14/21 07:53 Pulse 77 06/14/21 09:21 Resp 18 06/14/21 07:53 BP 104/73 06/14/21 09:21 Pulse Ox 96 06/14/21 09:21 Oxygen Flow Rate 1 06/13/21 14:27 Body Mass Index 29.1 Const: General: cooperative, healthy appearing and no acute distress Resp: Effort & Inspection: normal respiratory effort and able to speak in complete sentences Cardio: Rate: regular rate Peripheral pulses: Peripheral pulses 2+ throughout GI: Palpation (GI): Soft to palpation Skin: Lesions: no lesions Rashes: no rashes Extrem: Other: Right knee aquacel dressing is clean, dry, and intact. No redness, ecchymosis, or drainage. NVI. Procedures Date of Service Date of Service: 06/14/21 Progress Note: A&P Assessment and plan (1) Status post total right knee replacement: Status: Acute Assessment and Plan: Continue pain mgmnt Continue ASA for dvt ppx Continue PT for RTKA H/H 6.3/.1 transfuse 1unit PRBCs Dispo planning- Medical clearance, continue PT and monitor H/H Fall Risk Details Current Medications: Current Medications Generic Name Dose Route Start Last Admin Trade Name Rosario PRN Reason Stop Dose Admin Acetaminophen 650 mg 06/12/21 15:44 06/14/21 08:04 Acetaminophen 325 Mg Tablet PO 650 mg Q6H BERTRAND Administration Aspirin 325 mg 06/13/21 22:00 06/14/21 08:04 Aspirin 325 Mg Tablet PO 325 mg BID BERTRAND Administration Clonazepam 0.5 mg 06/13/21 09:40 Clonazepam 0.5 Mg Tablet PO DAILY PRN Anxiety Escitalopram Oxalate 20 mg 06/13/21 09:40 06/14/21 08:04 Escitalopram Oxalate 20 Mg Tablet PO 20 mg DAILY BERTRAND Administration Folic Acid 1 mg 06/13/21 09:40 06/14/21 08:04 Folic Acid 1 Mg Tablet PO 1 mg DAILY BERTRAND Administration Gabapentin 200 mg 06/13/21 21:00 06/13/21 22:16 Gabapentin 100 Mg Capsule PO 200 mg BEDTIME BERTRAND Administration Ketorolac Tromethamine 15 mg 06/12/21 15:44 06/14/21 08:04 Ketorolac Tromethamine 15 Mg/Ml Vial IVPUSH 15 mg Q6H BERTRAND Administration Levothyroxine Sodium 75 mcg 06/14/21 06:00 06/14/21 06:29 Levothyroxine Sodium 75 Mcg Tablet PO 75 mcg DAILY@0600 BERTRAND Administration Morphine Sulfate 2 mg 06/12/21 15:44 06/13/21 12:42 Morphine Sulfate 2 Mg/Ml Cartridge IVPUSH 2 mg Q2H PRN Administration Pain, Severe (Pain Scale 7-10) Protocol Naloxone HCl 0.2 mg 06/12/21 15:44 Naloxone Hcl 0.4 Mg/Ml Vial IVPUSH Q2M PRN Excessive sedation or RR < 8 Omeprazole 40 mg 06/14/21 06:30 06/14/21 06:29 Omeprazole 40 Mg Capsule.Dr PO 40 mg DAILY@0630 [facility] Administration Ondansetron HCl 4 mg 06/12/21 15:44 Ondansetron Hcl 4 Mg/2 Ml Vial IVPUSH Q8H PRN Nausea and Vomiting Oxycodone HCl 10 mg 06/12/21 15:44 06/14/21 08:04 Oxycodone Hcl Immed Release 5 Mg Tablet PO 10 mg Q6H BERTRAND Administration Sodium Chloride 3 ml 06/12/21 16:00 06/14/21 08:05 0.9 % Sodium Chloride Flush 3 Ml Syringe IVFLUSH Not Given QSHIFT [facility] Trazodone HCl 100 mg 06/13/21 21:00 06/13/21 22:17 Trazodone Hcl 100 Mg Tablet PO 100 mg BEDTIME BERTRAND Administration Vitamin D 100 mcg 06/13/21 09:40 06/14/21 08:04 Cholecalciferol (Vitamin D3) 25 Mcg Tablet PO 100 mcg DAILY BERTRAND Administration Time Spent With Patient Time: Total time spent is greater than 50% in coordination of care (as documented) at patient's floor/unit and/or counseling patient: Time with patient: less than 15 minutes Quality Stroke Does the patient have a stroke diagnosis?: No VTE Prior VTE?: No VTE Risk Level:: Surgical - high VTE Device Contraindication: N/A - Device Ordered VTE Drug Contraindication: N/A - Med Ordered
--- NOTE | 2021-06-14 10:14 | P.PNIM_ITS ---
Subjective Subjective Date of Service: 06/14/21 Interval History: feels better today denying sob or chest pain 06/13 at about 7pm had rapid response for hypoxia/ams, was put on o2 and given l asix, after about 30 minutes felt back to normal, but still required 2-3L o2. Cardiovascular Cardiovascular: Reports no additional cardiovascular complaints Respiratory Respiratory: Reports no additional respiratory complaints Physical Exam Vital Signs: Vital Signs: Last Vital Signs Temp 97.4 F 06/14/21 10:12 Pulse 73 06/14/21 10:12 Resp 16 06/14/21 10:12 BP 88/51 L 06/14/21 10:12 Pulse Ox 94 06/14/21 10:05 Oxygen Flow Rate 1 06/13/21 14:27 Body Mass Index 29.1 General: AO X 3, no acute distress Resp: diminihsed CVS: S1,S2,RRR GI: soft, non tender, non distended Neuro: motor grossly intact Psych: appropriate affect Objective Data Current Medications Generic Name Dose Route Start Last Admin Trade Name Mikeq PRN Reason Stop Dose Admin Acetaminophen 650 mg 06/12/21 15:44 06/14/21 08:04 Acetaminophen 325 Mg Tablet PO 650 mg Q6H BERTRAND Administration Aspirin 325 mg 06/13/21 22:00 06/14/21 08:04 Aspirin 325 Mg Tablet PO 325 mg BID BERTRAND Administration Clonazepam 0.5 mg 06/13/21 09:40 Clonazepam 0.5 Mg Tablet PO DAILY PRN Anxiety Escitalopram Oxalate 20 mg 06/13/21 09:40 06/14/21 08:04 Escitalopram Oxalate 20 Mg Tablet PO 20 mg DAILY BERTRAND Administration Folic Acid 1 mg 06/13/21 09:40 06/14/21 08:04 Folic Acid 1 Mg Tablet PO 1 mg DAILY EBRTRAND Administration Gabapentin 200 mg 06/13/21 21:00 06/13/21 22:16 Gabapentin 100 Mg Capsule PO 200 mg BEDTIME BERTRAND Administration Ketorolac Tromethamine 15 mg 06/12/21 15:44 06/14/21 08:04 Ketorolac Tromethamine 15 Mg/Ml Vial IVPUSH 15 mg Q6H BERTRAND Administration Levothyroxine Sodium 75 mcg 06/14/21 06:00 06/14/21 06:29 Levothyroxine Sodium 75 Mcg Tablet PO 75 mcg DAILY@0600 BERTRAND Administration Morphine Sulfate 2 mg 06/12/21 15:44 06/13/21 12:42 Morphine Sulfate 2 Mg/Ml Cartridge IVPUSH 2 mg Q2H PRN Administration Pain, Severe (Pain Scale 7-10) Protocol Naloxone HCl 0.2 mg 06/12/21 15:44 Naloxone Hcl 0.4 Mg/Ml Vial IVPUSH Q2M PRN Excessive sedation or RR < 8 Omeprazole 40 mg 06/14/21 06:30 06/14/21 06:29 Omeprazole 40 Mg Capsule. PO 40 mg DAILY@0630 BERTRAND Administration Ondansetron HCl 4 mg 06/12/21 15:44 Ondansetron Hcl 4 Mg/2 Ml Vial IVPUSH Q8H PRN Nausea and Vomiting Oxycodone HCl 10 mg 06/12/21 15:44 06/14/21 08:04 Oxycodone Hcl Immed Release 5 Mg Tablet PO 10 mg Q6H BERTRAND Administration Sodium Chloride 3 ml 06/12/21 16:00 06/14/21 08:05 0.9 % Sodium Chloride Flush 3 Ml Syringe IVFLUSH Not Given QSHIFT BERTRAND Trazodone HCl 100 mg 06/13/21 21:00 06/13/21 22:17 Trazodone Hcl 100 Mg Tablet PO 100 mg BEDTIME BERTRAND Administration Vitamin D 100 mcg 06/13/21 09:40 06/14/21 08:04 Cholecalciferol (Vitamin D3) 25 Mcg Tablet PO 100 mcg DAILY BERTRAND Administration Labs CBC & Chem 7: 06/14/21 05:58 06/14/21 05:58 Labs: Laboratory Results - last 24 hr 06/13/21 06/13/21 06/13/21 19:37 19:37 19:38 MCV 77.5 L MCH 23.5 L MCHC 30.3 L RDW 16.3 H Plt Count 174 MPV 10.4 Immature Gran % (Auto) Neut % (Auto) Lymph % (Auto) [place] % (Auto) Eos % (Auto) Baso % (Auto) Lymph # (Auto) [place] # (Auto) Eos # (Auto) Baso # (Auto) Abs Immat Gran (auto) Absolute Neuts (auto) Absolute Nucleated RBC 0.000 Nucleated RBC % (auto) 0.0 Smear Path Review Cancelled Anion Gap 12 Estim Creat Clear Calc 35.8 Estimated GFR 46 Random Glucose 125 H Calcium 8.1 L Ferritin 15 Troponin I High Sens < 3.5 B-Natriuretic Peptide 198 H Vitamin B12 Folate COVID-19 ([facility]) COVID-19 CENX Com Blood Type Antibody Screen Crossmatch 06/13/21 06/14/21 06/14/21 19:38 05:58 05:58 MCV 78.4 L MCH 23.4 L MCHC 29.9 L RDW 16.3 H Plt Count 158 L MPV 10.6 Immature Gran % (Auto) 0.2 Neut % (Auto) 54.8 Lymph % (Auto) 29.3 [place] % (Auto) 13.1 H Eos % (Auto) 2.2 Baso % (Auto) 0.4 Lymph # (Auto) 1.3 [place] # (Auto) 0.6 Eos # (Auto) 0.1 Baso # (Auto) 0.0 Abs Immat Gran (auto) 0.01 Absolute Neuts (auto) 2.5 Absolute Nucleated RBC 0.000 Nucleated RBC % (auto) 0.0 Smear Path Review Anion Gap 8 L Estim Creat Clear Calc 37.1 Estimated GFR 48 Random Glucose 101 Calcium 8.0 L Ferritin Troponin I High Sens B-Natriuretic Peptide Vitamin B12 539 Folate 10.2 COVID-19 ([facility]) COVID-19 CENX Com Blood Type Antibody Screen Crossmatch 06/14/21 06/14/21 07:18 07:47 MCV MCH MCHC RDW Plt Count MPV Immature Gran % (Auto) Neut % (Auto) Lymph % (Auto) [place] % (Auto) Eos % (Auto) Baso % (Auto) Lymph # (Auto) [place] # (Auto) Eos # (Auto) Baso # (Auto) Abs Immat Gran (auto) Absolute Neuts (auto) Absolute Nucleated RBC Nucleated RBC % (auto) Smear Path Review Anion Gap Estim Creat Clear Calc Estimated GFR Random Glucose Calcium Ferritin Troponin I High Sens B-Natriuretic Peptide Vitamin B12 Folate COVID-19 ([facility]) Negative COVID-Mx Orthopedics See Note Blood Type B Negative Antibody Screen NEGATIVE Crossmatch See Detail Assessment and Plan (1) Acute respiratory failure with hypoxia: Status: Acute Assessment and Plan: 81F presented for elective knee replacement, on POD1 had rapid response for acute hypoxia acute hypoxic respiratory failure complicated by metabolic encephalopathy encephalopathy resolved work up for hypoxia in progress check CTA chest, echo acute blood loss anemia hgb 6.3, transfuse 2 units prbc, monitor hypotension likely due to anemia and pain meds transfuse as above, holding bp meds hypothyroid synthroid gerd ppi right TKS POD 2 asa high dose for dvt prophylaxis Quality Stroke Does the patient have a stroke diagnosis?: No VTE Prior VTE?: No VTE Risk Level:: Surgical - high VTE Device Contraindication: N/A - Device Ordered VTE Drug Contraindication: N/A - Med Ordered
--- NOTE | 2021-06-14 11:00 | CA_ITS ---
Transthoracic Echocardiogram Patient (Last, First, Middle): Ashleigh Clark, Gender: Female Date of : 1940 Age: 81 Procedure Date: 06/14/2021 Procedure Type: Transthoracic Echocardiogram Location: S3E Height: 154.94 cm Weight: 70.31 kg BSA: 1.70 m2 Heart Rate: bpm BP: 104 / 73 mmHg Lead Front End Developer: MONROE Denis MD: Esequiel Solares MD Symptoms: hypoxia, ?chf Study Quality: Fair Conclusions: - Normal left ventricular size and systolic function. - Normal right ventricular cavity size and systolic function. - There is mild to moderate tricuspid valve regurgitation. Moderate pulmonary hypertension is present. Findings Left Ventricle Normal left ventricular size and systolic function. There is mildly increased left ventricular wall thickness. The visually estimated ejection fraction is between 60-65%. There is no evidence of regional wall motion abnormalities. Diastolic function is indeterminate on the basis of available data. Spectral Doppler is indicative of an impaired relaxation filling pattern. E/E prime ratio is between 8 and 15 consistent with indeterminate filling pressures. Right Ventricle Normal right ventricular cavity size and systolic function. Atria The left atrium is normal in size. The right atrium is mildly dilated. Aortic Valve There is a normal trileaflet aortic valve. There is mild calcification of the aortic valve. There is no aortic valve stenosis. There is no aortic valve regurgitation. Mitral Valve Normal mitral valve structure and function. There is trace mitral valve regurgitation. There is no mitral valve stenosis. Pulmonic Valve Normal pulmonic valve structure and function. There is trace pulmonic valve regurgitation. Tricuspid Valve Normal tricuspid valve structure. There is mild to moderate tricuspid valve regurgitation. Moderate pulmonary hypertension is present. Great Vessels All visible segments of the aorta are normal in size. The visualized portions of the pulmonary artery and branches are normal. Venous The inferior vena cava is normal in size and collapses greater than 50% with inspiration. Pericardium/Pleural There is no evidence of pericardial effusion. Prior Study Comparison No prior study available for comparison. Measurements 2D Linear Measurements IVSd: 0.90 0.6-0.9/0.6-1.0 cm LVIDd: 4.20 3.9-5.3/4.2-5.9 cm LVIDd Index: 2.47 2.4-3.2/2.2-3.1 cm/m2 LVIDs: 2.48 2.0-3.6 cm LVPWd: 0.89 0.7-1.1 cm Ao Root: 3.00 2.1-3.5 cm LA Diam: 3.20 2.7-3.8/3.0-4.0 cm LAIDs Index: 1.88 1.5-2.3 cm/m2 LV Mass: 146.47 67-162/88-224 g LV Mass Index: 86.16 43-95/49-115 g/m2 LVOT Diam: 2.00 3.0+(-)1.3 cm 2D Systolic Function EF 4C: 58.80 >55% EF 2C: 64.80 >55% EF BiP: 61.60 >55% Mitral Valve MV Pk E: 0.86 MV PK A: 1.03 MV Decel Time: 323.00 E/A: 0.80 E'Lateral: 9.90 E'Medial: 7.94 E/E' Med: 10.80 E/E' Lat: 8.70 PHT: 95.00 MVA PHT: 2.32 Decel [place]: 2.65 Aortic Valve AoV Pk Osmani: 1.55 AoV Mn Osmani: 1.12 AoV VTI: 0.36 AoV Pk Grad: 10.00 Aov Mn Grad: 5.00 BALA Cont.VTI: 2.17 LVOT LVOT Pk Osmani: 1.19 LVOT Mn Osmani: 0.75 LVOT VTI: 0.25 LVOT Pk Grad: 6.00 LVOT Mn Grad: 3.00 LVOT Diam: 2.00 LVOT Area: 3.14 Diastolic Function MV Pk E: 0.86 MV Pk A: 1.03 E/A: 0.80 E'Medial: 7.94 E/E' Med: 10.80 E' Laterial: 9.90 E/E' Lat: 8.70 Right Ventricle TAPSE (mm): 2.20 TVS' Osmani: 12.70 Tricuspid Valve TR Pk Osmani: 3.35 TR Pk Grad: 45.00 RA Press: 8.00 RVSP: 53.00 Great Vessels Aorta Ao Root-2D: 3.00 2.0-3.7 cm Ao Asc: 3.10 2.1-3.4 cm Ao Arch: 2.80 Updated in Other Vendor System with Status of Final Bhavin Ramirez MD electronically signed on 06/14/2021 8:48:15 PM with status of Final
[2021-06-14] MEDS: 0.9 % Sodium Chloride Flush 3 ML SYRINGE IVFLUSH ×2 (17:30→20:53)
[2021-06-14] MEDS: traZODone HCL 100 MG TABLET PO (20:49)
[2021-06-14] MEDS: Gabapentin 100 MG CAPSULE 200 MG PO (20:49)
[2021-06-15] VITALS (8 sets, daily range): BP systolic 113–137; BP diastolic 55–67; PULSE 66–84; RESP 17–20; TEMP 36–37.3; O2SAT 90–99
[2021-06-15] MEDS: Acetaminophen 325 MG TABLET 650 MG PO ×3 (03:59→15:44)
[2021-06-15] MEDS: oxyCODONE HCl Immed Release 5 MG TABLET 10 MG PO ×3 (03:59→15:43)
[2021-06-15] MEDS: Ketorolac Tromethamine 15 MG/ML VIAL IVPUSH ×3 (04:00→15:44)
[2021-06-15] MEDS: Levothyroxine Sodium 75 MCG TABLET PO (06:02)
[2021-06-15] MEDS: Omeprazole 40 MG CAPSULE.DR PO (06:02)
[2021-06-15 06:11] LABS: MANUAL DIFF FLAG NO
[2021-06-15 06:24] LABS: Basophils Percent Auto 0.4 % (0-2); Eosinophils Absolute Auto 0.3 X10*3/uL (0.0-0.4); Hematocrit 28.8 % (37-47); Hemoglobin 8.8 g/dl (12.0-16.0); Imm Gran Abs Auto 0.02 X10*3/uL (0.00-0.03); Imm Gran Pct Auto 0.4 % (0.0-0.4); Lymphocytes Absolute Auto 1.4 X10*3/uL (1.2-4.9); Lymphocytes Percent Auto 31.8 % (20-40); Mean Corpuscular HGB Conc 30.6 g/dl (31.0-35.0); Mean Corpuscular Hemoglobin 24.3 pg (27.0-33.0); Mean Corpuscular Volume 79.6 fL (80-98); Mean Platelet Volume 10.3 fL (9.4-12.3); Monocytes Absolute Auto 0.5 X10*3/uL (0.1-1.2); Monocytes Percent Auto 11.7 % (2-11); Neutrophils Absolute Auto 2.2 X10*3/uL (2.0-8.3); Neutrophils Percent Auto 48.7 % (45-73); Platelet Count 158 X10*3/uL (160-400); Red Blood Count 3.62 X10*6/uL (4.20-5.50); Red Cell Distribution Width 16.1 % (11.0-16.0); White Blood Count 4.5 X10*3/uL (4.8-10.8)
[2021-06-15 06:53] LABS: Anion Gap 7 (12-20); Blood Urea Nitrogen 20 mg/dL (9-16); Calcium 8.3 mg/dL (8.4-10.2); Carbon Dioxide 33 mmol/L (22-29); Chloride 107 mmol/L (96-108); Creatinine Clr Calc Pharmacy 42.5; Estimated Glomerular Filt Rate 56; Glucose Fasting 86 mg/dL (60-99); Sodium 142 mmol/L (135-145)
--- NOTE | 2021-06-15 07:48 | PM.PNORT ---
Subjective Subjective Date of Service: 06/15/21 Interval history: POD3 RTKA with Dr. Vides. Patient is resting comfortably in bed. Pain is well managed. No overnight events. No additional complaints. Physical Exam Vital Signs: Vital Signs: Last Vital Signs Temp 96.8 F 06/15/21 07:45 Pulse 76 06/15/21 07:45 Resp 18 06/15/21 07:45 BP 113/55 L 06/15/21 07:45 Pulse Ox 97 06/15/21 07:45 Oxygen Flow Rate 2.0 06/14/21 14:00 Body Mass Index 29.1 Const: General: cooperative, healthy appearing and no acute distress Resp: Effort & Inspection: normal respiratory effort and able to speak in complete sentences Cardio: Rate: regular rate Peripheral pulses: Peripheral pulses 2+ throughout GI: Palpation (GI): Soft to palpation Skin: Lesions: no lesions Rashes: no rashes Extrem: Other: Right knee ecchymosis on the medial aspect of the high to the groin. No erythema or drainage. Aquacel dressing changed. NVI. Procedures Date of Service Date of Service: 06/15/21 Progress Note: A&P Assessment and plan (1) Status post total right knee replacement: Status: Acute Assessment and Plan: Continue pain mgmnt Contniue ASA dvt ppx Continue PT for RTKA Dispo planning- PT, pain mgmnt, pending medicine workup for hypoxic event 06/13/21 Fall Risk Details Current Medications: Current Medications Generic Name Dose Route Start Last Admin Trade Name Freq PRN Reason Stop Dose Admin Acetaminophen 650 mg 06/12/21 15:44 06/15/21 03:59 Acetaminophen 325 Mg Tablet PO 650 mg Q6H BERTRAND Administration Aspirin 325 mg 06/13/21 22:00 06/14/21 20:48 Aspirin 325 Mg Tablet PO 325 mg BID BERTRAND Administration Clonazepam 0.5 mg 06/13/21 09:40 Clonazepam 0.5 Mg Tablet PO DAILY PRN Anxiety Escitalopram Oxalate 20 mg 06/13/21 09:40 06/14/21 08:04 Escitalopram Oxalate 20 Mg Tablet PO 20 mg DAILY BERTRAND Administration Folic Acid 1 mg 06/13/21 09:40 06/14/21 08:04 Folic Acid 1 Mg Tablet PO 1 mg DAILY BERTRAND Administration Gabapentin 200 mg 06/13/21 21:00 06/14/21 20:49 Gabapentin 100 Mg Capsule PO 200 mg BEDTIME BERTRAND Administration Ketorolac Tromethamine 15 mg 06/12/21 15:44 06/15/21 04:00 Ketorolac Tromethamine 15 Mg/Ml Vial IVPUSH 15 mg Q6H BERTRAND Administration Levothyroxine Sodium 75 mcg 06/14/21 06:00 06/15/21 06:02 Levothyroxine Sodium 75 Mcg Tablet PO 75 mcg DAILY@0600 BERTRAND Administration Morphine Sulfate 2 mg 06/12/21 15:44 06/13/21 12:42 Morphine Sulfate 2 Mg/Ml Cartridge IVPUSH 2 mg Q2H PRN Administration Pain, Severe (Pain Scale 7-10) Protocol Naloxone HCl 0.2 mg 06/12/21 15:44 Naloxone Hcl 0.4 Mg/Ml Vial IVPUSH Q2M PRN Excessive sedation or RR < 8 Omeprazole 40 mg 06/14/21 06:30 06/15/21 06:02 Omeprazole 40 Mg Capsule.Dr PO 40 mg DAILY@0630 BERTRAND Administration Ondansetron HCl 4 mg 06/12/21 15:44 Ondansetron Hcl 4 Mg/2 Ml Vial IVPUSH Q8H PRN Nausea and Vomiting Oxycodone HCl 10 mg 06/12/21 15:44 06/15/21 03:59 Oxycodone Hcl Immed Release 5 Mg Tablet PO 10 mg Q6H BERTRAND Administration Sodium Chloride 3 ml 06/12/21 16:00 06/14/21 20:53 0.9 % Sodium Chloride Flush 3 Ml Syringe IVFLUSH 3 ml QSHIFT BERTRAND Administration Trazodone HCl 100 mg 06/13/21 21:00 06/14/21 20:49 Trazodone Hcl 100 Mg Tablet PO 100 mg BEDTIME BERTRAND Administration Vitamin D 100 mcg 06/13/21 09:40 06/14/21 08:04 Cholecalciferol (Vitamin D3) 25 Mcg Tablet PO 100 mcg DAILY BERTRAND Administration Time Spent With Patient Time: Total time spent is greater than 50% in coordination of care (as documented) at patient's floor/unit and/or counseling patient: Time with patient: less than 15 minutes Quality Stroke Does the patient have a stroke diagnosis?: No VTE Prior VTE?: No VTE Risk Level:: Surgical - high VTE Device Contraindication: N/A - Device Ordered VTE Drug Contraindication: N/A - Med Ordered
[2021-06-15] MEDS: Cholecalciferol (Vitamin D3) 25 MCG TABLET 100 MCG PO (08:26)
[2021-06-15] MEDS: Escitalopram Oxalate 20 MG TABLET PO (08:27)
[2021-06-15] MEDS: Folic Acid 1 MG TABLET PO (08:27)
[2021-06-15] MEDS: Aspirin 325 MG TABLET PO (08:27)
[2021-06-15] MEDS: 0.9 % Sodium Chloride Flush 3 ML SYRINGE IVFLUSH ×2 (08:30→15:44)
--- NOTE | 2021-06-15 12:34 | P.PNIM_ITS ---
Subjective Subjective Date of Service: 06/15/21 Interval History: F/u on med consult, c/o intermittent sensation of food get stuck, apparently had a CTA ordered from an incident of syncope 2 nights ago. O2 sat 90 on room Review of Systems Gen: no fever Resp: no sob, no cough CV: no chest, no WALKER, no leg edema GI: No n/v, no abd pain Neuro: No confusion Physical Exam Vital Signs: Vital Signs: Last Vital Signs Temp 97.6 F 06/15/21 11:37 Pulse 80 06/15/21 11:37 Resp 18 06/15/21 11:37 BP 116/67 06/15/21 11:37 Pulse Ox 90 L 06/15/21 11:37 Oxygen Flow Rate 2.0 06/14/21 14:00 Body Mass Index 29.1 General: AO X 3, no acute distress Resp: CTA bilateral CVS: S1,S2,RRR GI: +BS, NT, no distention Skin: No rash Neuro: motor grossly intact Psych: appropriate affect Objective Data Current Medications Generic Name Dose Route Start Last Admin Trade Name Rosario PRN Reason Stop Dose Admin Acetaminophen 650 mg 06/12/21 15:44 06/15/21 10:26 Acetaminophen 325 Mg Tablet PO 650 mg Q6H BERTRAND Administration Aspirin 325 mg 06/13/21 22:00 06/15/21 08:27 Aspirin 325 Mg Tablet PO 325 mg BID BERTRAND Administration Clonazepam 0.5 mg 06/13/21 09:40 Clonazepam 0.5 Mg Tablet PO DAILY PRN Anxiety Escitalopram Oxalate 20 mg 06/13/21 09:40 06/15/21 08:27 Escitalopram Oxalate 20 Mg Tablet PO 20 mg DAILY BERTRAND Administration Folic Acid 1 mg 06/13/21 09:40 06/15/21 08:27 Folic Acid 1 Mg Tablet PO 1 mg DAILY BERTRAND Administration Gabapentin 200 mg 06/13/21 21:00 06/14/21 20:49 Gabapentin 100 Mg Capsule PO 200 mg BEDTIME BERTRAND Administration Ketorolac Tromethamine 15 mg 06/12/21 15:44 06/15/21 10:28 Ketorolac Tromethamine 15 Mg/Ml Vial IVPUSH 15 mg Q6H BERTRAND Administration Levothyroxine Sodium 75 mcg 06/14/21 06:00 06/15/21 06:02 Levothyroxine Sodium 75 Mcg Tablet PO 75 mcg DAILY@0600 BERTRAND Administration Morphine Sulfate 2 mg 06/12/21 15:44 06/13/21 12:42 Morphine Sulfate 2 Mg/Ml Cartridge IVPUSH 2 mg Q2H PRN Administration Pain, Severe (Pain Scale 7-10) Protocol Naloxone HCl 0.2 mg 06/12/21 15:44 Naloxone Hcl 0.4 Mg/Ml Vial IVPUSH Q2M PRN Excessive sedation or RR < 8 Omeprazole 40 mg 06/14/21 06:30 06/15/21 06:02 Omeprazole 40 Mg Capsule. PO 40 mg DAILY@0630 BERTRAND Administration Ondansetron HCl 4 mg 06/12/21 15:44 Ondansetron Hcl 4 Mg/2 Ml Vial IVPUSH Q8H PRN Nausea and Vomiting Oxycodone HCl 10 mg 06/12/21 15:44 06/15/21 10:27 Oxycodone Hcl Immed Release 5 Mg Tablet PO 10 mg Q6H BERTRAND Administration Sodium Chloride 3 ml 06/12/21 16:00 06/15/21 08:30 0.9 % Sodium Chloride Flush 3 Ml Syringe IVFLUSH 3 ml QSHIFT BERTRAND Administration Trazodone HCl 100 mg 06/13/21 21:00 06/14/21 20:49 Trazodone Hcl 100 Mg Tablet PO 100 mg BEDTIME BERTRAND Administration Vitamin D 100 mcg 06/13/21 09:40 06/15/21 08:26 Cholecalciferol (Vitamin D3) 25 Mcg Tablet PO 100 mcg DAILY BERTRAND Administration Labs CBC & Chem 7: 06/15/21 05:33 06/15/21 05:33 Labs: Laboratory Results - last 24 hr 06/14/21 06/15/21 06/15/21 07:47 05:33 05:33 MCV Cancelled MCH Cancelled MCHC Cancelled RDW Cancelled Plt Count Cancelled MPV Cancelled Immature Gran % (Auto) Neut % (Auto) Lymph % (Auto) [place] % (Auto) Eos % (Auto) Baso % (Auto) Lymph # (Auto) [place] # (Auto) Eos # (Auto) Baso # (Auto) Abs Immat Gran (auto) Absolute Neuts (auto) Absolute Nucleated RBC Cancelled Nucleated RBC % (auto) Cancelled Anion Gap 7 L Estim Creat Clear Calc 42.5 Estimated GFR 56 Random Glucose TNP Fasting Glucose 86 Calcium 8.3 L Crossmatch See Detail 06/15/21 05:33 MCV 79.6 L MCH 24.3 L MCHC 30.6 L RDW 16.1 H Plt Count 158 L MPV 10.3 Immature Gran % (Auto) 0.4 Neut % (Auto) 48.7 Lymph % (Auto) 31.8 [place] % (Auto) 11.7 H Eos % (Auto) 7.0 H Baso % (Auto) 0.4 Lymph # (Auto) 1.4 [place] # (Auto) 0.5 Eos # (Auto) 0.3 Baso # (Auto) 0.0 Abs Immat Gran (auto) 0.02 Absolute Neuts (auto) 2.2 Absolute Nucleated RBC 0.000 Nucleated RBC % (auto) 0.0 Anion Gap Estim Creat Clear Calc Estimated GFR Random Glucose Fasting Glucose Calcium Crossmatch Assessment and Plan (1) Acute respiratory failure with hypoxia: Status: Acute Assessment and Plan: 81F presented for elective knee replacement, on POD1 had rapid response for acute hypoxia acute hypoxic respiratory failure etiology not clear, probably post op state including atelectasis, anemia, -CTA ordered, I think should be completed -Echo: ?Normal left ventricular size and systolic function.? - Normal right ventricular cavity size and systolic function.? ? - There is mild to moderate tricuspid valve regurgitation. ? ? ? Moderate pulmonary hypertension is present.? encephalopathy resolved--possibly related to hypoxia. Resolved acute blood loss anemia hgb 6.3, transfuse 2 units prbc, Hgb 8.8 hypotension--resolved likely due to anemia and pain meds transfuse as above, holding bp meds hypothyroid synthroid gerd ppi right TKA POD 3, management by Ortho feeling of food getting stuck monitor if persists then GI eval asa high dose for dvt prophylaxis Quality Stroke Does the patient have a stroke diagnosis?: No VTE Prior VTE?: No VTE Risk Level:: Surgical - high VTE Device Contraindication: N/A - Device Ordered VTE Drug Contraindication: N/A - Med Ordered
[2021-06-15 13:19] LABS: COVID-19 Test Negative (Negative)
[2021-06-15] MEDS: iohexoL 350 MG/ML 100 ML INFUS..BTL IV (14:19)
--- NOTE | 2021-06-15 15:39 | MHC.CM.PN ---
PT DISCHARGING TODAY TO [facility] FOR STR AT 1700, [facility] FOR BLS TRANSPORT.
== END 2021-06-15 17:20 | disposition skilled nursing facility (03) ==
LOC: HO.SSS 10:01 → HO.S3 10:23
PROVIDERS: Internal Medicine; Physician Assistant; PCP Physician Assistant Medical; Visit Provider Orthopaedic Surgery
PROC: (CPT 27447; principal; 2021-06-12 12:30)
DX: M17.11 Unilateral primary osteoarthritis, right knee (principal); J96.01 Acute respiratory failure with hypoxia; I10 Essential (primary) hypertension; F32.9 Major depressive disorder, single episode, unspecified; M85.80 Other specified disorders of bone density and structure, unspecified site; Z79.899 Other long term (current) drug therapy; Z88.0 Allergy status to penicillin; Z88.2 Allergy status to sulfonamides; Z96.652 Presence of left artificial knee joint; Z85.3 Personal history of malignant neoplasm of breast; Z92.3 Personal history of irradiation; Z87.891 Personal history of nicotine dependence; Z20.822 Contact with and (suspected) exposure to COVID-19
CPT/HCPCS: 27447; 36415; 71045; 71275; 73560; 80048; 82607; 82728; 82746; 83880; 84484; 85025; 85027; 86850; 86900; 86901; 86923; 87635; 87640; 87641; 88305; 88311; 93005; 93306; 97110; 97116; 97161; 97165; 97535; C1776; J0131; J0690; J1100; J1170; J1885; J1940; J2270; J2370; J2405; J3010; P9016; Q9967

== ENCOUNTER 2021-06-23 18:13 | Emergency (ER) | payer MEDICARE, OTHER, SELFPAY ==
--- NOTE | ~2021-06-23 | XR_ITS ---
EXAMINATION: XR KNEE, RIGHT CLINICAL INFORMATION: Right knee pain status post fall. COMPARISON: 06/13/2021 right knee radiographs. TECHNIQUE: Two views of the right knee. FINDINGS: The patient is status post right knee arthroplasty showing good anatomic alignment. There is no acute fracture. A moderate suprapatellar joint effusion is seen. Moderate prepatellar soft tissue swelling is seen as well. There has been interval resolution of intra-articular and subcutaneous air. Surgical skin clips anteriorly remain in place. XR/XR knee RT 2V IMPRESSION: 1. No acute fracture or hardware abnormality. 2. Interval increase in suprapatellar joint effusion and prepatellar soft tissue swelling. These findings are nonspecific and could represent evolution of postsurgical changes or could be secondary to the patient's stated trauma. Correlate with physical exam.
[2021-06-23 18:22] VITALS: BP 122/58; BP 151/69; PULSE 77; PULSE 78; RESP 15; TEMP 37.2; O2SAT 94; O2SAT 97; BMI 33.7
--- NOTE | 2021-06-23 19:02 | ED.FALL ---
HPI - Fall General Chief Complaint: Fall Stated Complaint: rolled out of bed left sided pain Time Seen by Provider: 06/23/21 18:30 Source: patient Mode of arrival: wheelchair Limitations: no limitations History of Present Illness HPI Narrative: Patient home rehab status post a right knee replacement done on 06/12 was trying to get up from the bed rolled over and landed on her left side came here just to be sure her right knee is fine no direct trauma to the right knee no other injury Related Data Home Medications Medication Instructions Recorded Confirmed clonazepam 0.5 mg tablet 1 tab PO DAILY PRN 05/26/21 05/26/21 escitalopram oxalate 20 mg tablet 1 tab PO DAILY 05/26/21 05/26/21 folic acid 1 mg tablet 1 tab PO DAILY 05/26/21 05/26/21 gabapentin 100 mg capsule 2 cap PO BEDTIME 05/26/21 05/29/21 levothyroxine 75 mcg tablet 1 tab PO QAM 05/26/21 05/26/21 meclizine 25 mg tablet 1 tab PO BID PRN 05/26/21 05/26/21 methotrexate sodium 2.5 mg tablet 8 tab PO QWEEK 05/26/21 05/26/21 omeprazole 40 mg capsule,delayed 1 cap PO DAILY 05/26/21 05/26/21 release trazodone 100 mg tablet 1 tab PO BEDTIME 05/26/21 05/26/21 cholecalciferol (vitamin D3) 50 100 mcg PO DAILY 05/29/21 05/29/21 mcg (2,000 unit) capsule (Vitamin D3) lisinopril 20 mg tablet 1 tab PO DAILY 05/29/21 05/29/21 magnesium 500 mg tablet 15 mg PO DAILY 05/29/21 05/29/21 vit C-vit [id number] 1 cap PO DAILY 05/29/21 05/29/21 3 100 mg-15 unit-2 mg-100 mg capsule Previous Rx's Medication Instructions Recorded acetaminophen 325 mg tablet 650 mg PO Q6H 30 Days #240 tab 06/13/21 aspirin 325 mg tablet 325 mg PO BID 14 Days #28 tab 06/13/21 oxycodone 10 mg tablet 10 mg PO Q6H PRN 7 Days #28 tab 06/15/21 Allergies Allergy/AdvReac Type Severity Reaction Status Date / Time amoxicillin [Augmentin] AdvReac Mild Stomach Verified 06/07/21 11:14 Upset clavulanic acid [Augmentin] AdvReac Mild Stomach Verified 06/07/21 11:14 Upset Review of Systems Review of Systems: Yes all other systems are reviewed and are negative [facility] Past Medical History Medical History Acute respiratory failure with hypoxia Anxiety Arthritis Atrial dilatation, left COVID-19 vaccine series completed Degenerative disc disease Depression Elevated cholesterol GERD (gastroesophageal reflux disease) HTN (hypertension) HX: breast cancer Hypothyroid Mitral regurgitation Normal cardiac stress test Osteoarthritis of right knee Osteopenia Surgical History History of carpal tunnel release of both wrists History of lumpectomy of right breast History of total left knee replacement Hx of cervical discectomy Hx of lithotripsy Hx of nasal septoplasty Social History Social History Household Members: None Housing: House Are you a primary companion caregiver to a significant other at home: No Do you presently have visiting nurse or other home services: No Patient Tobacco Use Status: Former Tobacco user Quit Date: age 34 Tobacco use type: Cigarette Years Smoked: 19 Advance Directives: Yes Advance Directives on File: Yes Advance Directives Date on File: 06/12/21 service: No Current occupational status: 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 Physical Exam Vital Signs: Vital Signs: Last Vital Signs Temp 99 F 06/23/21 18:22 Pulse 77 06/23/21 18:22 Resp 15 06/23/21 18:22 BP 151/69 H 06/23/21 18:22 Pulse Ox 97 06/23/21 18:22 Body Mass Index 33.7 Const: General: no acute distress Orientation/consciousness: patient oriented x3 HENMT: Head: Yes normocephalic and Yes atraumatic Resp: Effort & Inspection: normal respiratory effort Auscultation: clear to auscultation bilaterally Cardio: Palpation: normal PMI Rate: regular rate Rhythm: regular rhythm Heart sounds: S1 normal heart sound present and S2 normal heart sound present Peripheral pulses: Peripheral pulses 2+ throughout Neuro: General: patient oriented x3 and no focal motor deficits Extrem: Knee images: 1. Diffuse swelling of the right knee postop dressing intact good range of movement MDM - Fall MDM Narrative Medical decision making narrative: Patient's right knee x-ray negative for any acute fracture discharge patient to rehab Discharge Plan Discharge Clinical Impression: Contusion of knee, right Qualifiers: Encounter type: initial encounter Qualified Code(s): S80.01XA - Contusion of right knee, initial encounter Patient Disposition: Home, Self-Care Instructions: Contusion in Adults (ED) Additional Instructions: Your x-ray is negative for any fracture. Follow-up with your orthopedic Prescriptions: No Action clonazepam 0.5 mg tablet 1 tab PO DAILY PRN (Reason: Anxiety) RF: 0 omeprazole 40 mg capsule,delayed release(DR/EC) 1 cap PO DAILY RF: 0 levothyroxine 75 mcg tablet 1 tab PO QAM RF: 0 methotrexate sodium 2.5 mg tablet 8 tab PO QWEEK RF: 0 Hold Instructions: hold x 6 weeks trazodone 100 mg tablet 1 tab PO BEDTIME RF: 0 meclizine 25 mg tablet 1 tab PO BID PRN (Reason: Vertigo) RF: 0 folic acid 1 mg tablet 1 tab PO DAILY RF: 0 gabapentin 100 mg capsule 2 cap PO BEDTIME RF: 0 escitalopram oxalate 20 mg tablet 1 tab PO DAILY RF: 0 lisinopril 20 mg tablet 1 tab PO DAILY RF: 0 vit C-vit [id number] Capsule 1 cap PO DAILY RF: 0 magnesium 500 mg Tablet 15 mg PO DAILY RF: 0 cholecalciferol (vitamin D3) [Vitamin D3] 50 mcg (2,000 unit) Capsule 100 mcg PO DAILY RF: 0 aspirin 325 mg Tablet 325 mg PO BID 14 Days Qty: 28 RF: 0 acetaminophen 325 mg Tablet 650 mg PO Q6H 30 Days Qty: 240 RF: 0 oxycodone 10 mg tablet 10 mg PO Q6H PRN (Reason: pain (scale score 4-6)) 7 Days Qty: 28 RF: 0
[2021-06-23 20:08] VITALS: BP 158/81; PULSE 77; RESP 18; TEMP 36.8; O2SAT 97
== END 2021-06-23 22:47 | disposition home or self-care (01) ==
PROVIDERS: Emergency Provider Internal Medicine
DX: S80.01XA Contusion of right knee, initial encounter (principal); W06.XXXA Fall from bed, initial encounter; Y93.9 Activity, unspecified; Y92.003 Bedroom of unspecified non-institutional (private) residence as the place of occurrence of the external cause; Y99.9 Unspecified external cause status; F17.210 Nicotine dependence, cigarettes, uncomplicated; Z71.6 Tobacco abuse counseling; Z79.899 Other long term (current) drug therapy
CPT/HCPCS: 73560; 99283; 99284

== ENCOUNTER → 2021-06-28 12:50 | Outpatient (BNVA) | payer MEDICARE, OTHER, SELFPAY | PROVIDERS: Visit Provider Physician Assistant | DX: Z47.1 Aftercare following joint replacement surgery (principal); Z96.651 Presence of right artificial knee joint | CPT/HCPCS: 99212 ==

== ENCOUNTER → 2021-07-14 10:53 | Outpatient (BNVA) | payer MEDICARE, OTHER, SELFPAY | PROVIDERS: Visit Provider Orthopaedic Surgery | DX: Z47.1 Aftercare following joint replacement surgery (principal); Z96.651 Presence of right artificial knee joint | CPT/HCPCS: 99212 ==

== ENCOUNTER 2021-08-18 10:57 | Outpatient (REF) | payer MEDICARE, OTHER, SELFPAY ==
--- NOTE | ~2021-08-18 | XR_ITS ---
EXAMINATION: XR KNEE, BILATERAL XR KNEE, RIGHT CLINICAL INFORMATION: Pain COMPARISON: 06/23/2021 TECHNIQUE: AP standing view of both knees. Lateral and sunrise views of the right knee. FINDINGS: Right Knee: Total right knee arthroplasty. The femoral component articulates appropriately with the tibial and patellar components. No periprosthetic lucency or fracture. No joint effusion. Mild soft tissue swelling. Left knee: Total left knee arthroplasty. The tibial and femoral components are appropriately aligned. No periprosthetic fracture seen. XR/XR knee RT 2V IMPRESSION: Total right knee arthroplasty in typical positioning and alignment. Total left knee arthroplasty partially imaged with no evidence of failure.
--- NOTE | ~2021-08-18 | XR_ITS ---
EXAMINATION: XR KNEE, BILATERAL XR KNEE, RIGHT CLINICAL INFORMATION: Pain COMPARISON: 06/23/2021 TECHNIQUE: AP standing view of both knees. Lateral and sunrise views of the right knee. FINDINGS: Right Knee: Total right knee arthroplasty. The femoral component articulates appropriately with the tibial and patellar components. No periprosthetic lucency or fracture. No joint effusion. Mild soft tissue swelling. Left knee: Total left knee arthroplasty. The tibial and femoral components are appropriately aligned. No periprosthetic fracture seen. XR/XR knee standing BI IMPRESSION: Total right knee arthroplasty in typical positioning and alignment. Total left knee arthroplasty partially imaged with no evidence of failure.
== END 2021-08-18 10:58 | disposition home or self-care (01) ==
LOC: HO.HOSX 10:57
PROVIDERS: PCP Physician Assistant Medical; Visit Provider Orthopaedic Surgery
DX: Z47.1 Aftercare following joint replacement surgery (principal); Z96.651 Presence of right artificial knee joint
CPT/HCPCS: 73560; 73565; 99212

== ENCOUNTER → 2021-10-30 13:34 | Outpatient (BNVA) | payer MEDICARE, OTHER, SELFPAY | PROVIDERS: Visit Provider Orthopaedic Surgery | DX: Z47.1 Aftercare following joint replacement surgery (principal); Z96.651 Presence of right artificial knee joint | CPT/HCPCS: 99212 ==

== ENCOUNTER 2023-02-14 08:36 | Outpatient (REF) | payer MEDICARE, OTHER, SELFPAY ==
--- NOTE | ~2023-02-14 | XR_ITS ---
EXAMINATION: XR knee RT 2V, XR knee LT 2V, XR knee standing BI CLINICAL INFORMATION: Reason for Exam M25.569 - Pain in unspecified knee COMPARISON: 08/18/2021 TECHNIQUE: Two views of the bilateral knees and standing view bilateral knees XR/XR knee standing BI FINDINGS/IMPRESSION: * No acute fracture or dislocation. * Status post bilateral total knee arthroplasties without evidence of hardware complication. * No soft tissue abnormality.
--- NOTE | ~2023-02-14 | XR_ITS ---
EXAMINATION: XR knee RT 2V, XR knee LT 2V, XR knee standing BI CLINICAL INFORMATION: Reason for Exam M25.569 - Pain in unspecified knee COMPARISON: 08/18/2021 TECHNIQUE: Two views of the bilateral knees and standing view bilateral knees XR/XR knee LT 2V FINDINGS/IMPRESSION: * No acute fracture or dislocation. * Status post bilateral total knee arthroplasties without evidence of hardware complication. * No soft tissue abnormality.
--- NOTE | ~2023-02-14 | XR_ITS ---
EXAMINATION: XR knee RT 2V, XR knee LT 2V, XR knee standing BI CLINICAL INFORMATION: Reason for Exam M25.569 - Pain in unspecified knee COMPARISON: 08/18/2021 TECHNIQUE: Two views of the bilateral knees and standing view bilateral knees XR/XR knee RT 2V FINDINGS/IMPRESSION: * No acute fracture or dislocation. * Status post bilateral total knee arthroplasties without evidence of hardware complication. * No soft tissue abnormality.
== END 2023-02-14 08:37 | disposition home or self-care (01) ==
LOC: HO.HOSX 08:36
PROVIDERS: Visit Provider Orthopaedic Surgery
DX: T84.84XA Pain due to internal orthopedic prosthetic devices, implants and grafts, initial encounter (principal); Z96.651 Presence of right artificial knee joint
CPT/HCPCS: 73560; 73565; 99212